=== PATIENT | male | born 1985 | race Caucasian/White ===

== ENCOUNTER 2020-07-07 06:56 | Emergency (ER) | payer SELFPAY ==
--- NOTE | 2020-07-07 07:32 | EDM.PDOC ---
ED HPI GENERAL MEDICAL PROBLEM - General Chief Complaint: Skin Complaint Stated Complaint: CONCRETE ON/IN BOTH HANDS Time Seen by Provider: 07/07/20 07:23 Source of Information: Reports: Patient History Limitations: Reports: No Limitations - History of Present Illness INITIAL COMMENTS - FREE TEXT/NARRATIVE: The patient presents with chemical bernardo to both hands. He was working with cement 3 days ago and got some on his hands. He has some bernardo to multiple fingers on both hands with erythema and edema and some open skin. He has no fever or chills. His tetanus is up to date. His left hand is worse then his right hand. Onset: Gradual Duration: Day(s): Location: Reports: Upper Extremity, Left (hand), Upper Extremity, Right (hand) Quality: Reports: Sharp Severity: Mild Improves with: Reports: None Worsens with: Reports: None Associated Symptoms: Reports: No Other Symptoms Bilateral Hand Pain Score (Numeric/FACES): 7 - Related Data Allergies Allergy/AdvReac Type Severity Reaction Status Date / Time No Known Allergies Allergy Verified 07/07/20 07:11 Home Meds: Home Meds cephALEXin [Keflex] 500 mg PO Q6H #40 cap 07/07/20 [Rx] Past Medical History - Past Health History Medical/Surgical History: Denies Medical/Surgical History Social & Family History - Tobacco Use Tobacco Use Status *Q: Never Tobacco User - Caffeine Use Caffeine Use: Reports: Soda - Recreational Drug Use Recreational Drug Use: No ED ROS GENERAL - Review of Systems Review Of Systems: See Below Constitutional: Reports: No Symptoms HEENT: Reports: No Symptoms Respiratory: Reports: No Symptoms Cardiovascular: Reports: No Symptoms Endocrine: Reports: No Symptoms GI/Abdominal: Reports: No Symptoms : Reports: No Symptoms Musculoskeletal: Reports: Other (bernardo to multiple fingers on both hands) ED EXAM, SKIN/RASH Exam: See Below Exam Limited By: No Limitations General Appearance: Alert, No Apparent Distress Ears: Normal External Exam Nose: Normal Inspection Head: Atraumatic, Normocephalic Neck: Normal Inspection Respiratory/Chest: No Respiratory Distress Extremities: Other (The skin on both hands and all the fingers is stained with the cements. There are areas of skin break down with erythema and there is edema. The skin break down is on he fingers.) Course - Vital Signs Last Recorded V/S: Last Vital Signs Temp 98.2 F 07/07/20 07:12 Pulse 82 07/07/20 07:12 Resp 18 07/07/20 07:12 BP 149/95 H 07/07/20 07:12 Pulse Ox 99 07/07/20 07:12 - Re-Assessments/Exams Free Text/Narrative Re-Assessment/Exam: 07/07/20 07:32 He has a bernardo from cement with cellulitis. I will get him on some keflex. Departure - Departure Time of Disposition: 07:35 Disposition: Home, Self-Care 01 Condition: Good Clinical Impression: Chemical burn Cellulitis Qualifiers: Site of cellulitis: extremity Site of cellulitis of extremity: finger Laterality: unspecified laterality Qualified Code(s): L03.019 - Cellulitis of unspecified finger - Discharge Information *PRESCRIPTION DRUG MONITORING PROGRAM REVIEWED*: Not Applicable *COPY OF PRESCRIPTION DRUG MONITORING REPORT IN PATIENT KAYDEN: Not Applicable Prescriptions: cephALEXin [Keflex] 500 mg PO Q6H #40 cap Referrals: PCP,None [Primary Care Provider] - Lani Jackson MD [Physician] - 1 Week Additional Instructions: Soak your hands in warm soapy water 2 times per day and apply antibiotics after. Do that for about a week. Take the keflex 4 times per day for 10 days. Take tylenol or motrin as needed for pain. Please return if you are worse. Sepsis Event Note (ED) - Evaluation Sepsis Screening Result: No Definite Risk - Focused Exam Vital Signs: Vital Signs Temp Pulse Resp BP Pulse Ox 07/07/20 07:12 98.2 F 82 18 149/95 H 99
== END 2020-07-07 07:50 | disposition home or self-care (01) ==
LOC: JD.ED 06:56
DX: T65.891A Toxic effect of other specified substances, accidental (unintentional), initial encounter (principal); T23.501A Corrosion of first degree of right hand, unspecified site, initial encounter; T23.502A Corrosion of first degree of left hand, unspecified site, initial encounter; L03.011 Cellulitis of right finger; L03.012 Cellulitis of left finger
CPT/HCPCS: 99283